=== PATIENT | female | born 2000 | race American Indian/Alaskan Native ===

== ENCOUNTER 2020-12-27 16:26 | Emergency (ER) | payer BC ==
[2020-12-27 16:34] VITALS: BP 120/94
[2020-12-27] MEDS ORDERED: predniSONE 20 MG TAB PO ONE (16:53)
[2020-12-27] MEDS ORDERED: diphenhydrAMINE 25 MG CAP PO ONE (16:54)
--- NOTE | 2020-12-27 17:00 | Emergency Department Report ---
ED General Adult HPI - General Chief complaint: Allergic Reaction Stated complaint: REACTION Time Seen by Provider: 12/27/20 16:52 Source: patient Mode of arrival: Ambulatory Limitations: No Limitations - History of Present Illness Initial comments: Patient complains of diffuse itchy rash to arms and torso and abdomen after coming in contact with possible poisonous oak. She denies any facial swelling, dysphagia, cough, or difficulty breathing. History of anxiety. Patient states rash is rapidly spreading -: Sudden - Related Data Previous Rx's Medication Instructions Recorded Last Taken Type Loratadine 10 mg PO QDAY PRN #10 tablet 12/27/20 Unknown Rx Prednisone [predniSONE 10 mg 10 mg PO .TAPER #1 tab.ds.pk 12/27/20 Unknown Rx (6-Day Pack, 21 Tabs)] Triamcinolone Acetonide 30 gm TP TID PRN 7 Days #1 12/27/20 Unknown Rx oint...g. Allergies Allergy/AdvReac Type Severity Reaction Status Date / Time Wiley And Derivatives Allergy Unknown Verified 12/27/20 16:31 ED Review of Systems ROS: Stated complaint: REACTION Other details as noted in HPI Constitutional: denies: chills, diaphoresis, fever, malaise, weakness Respiratory: denies: cough, shortness of breath Cardiovascular: denies: chest pain Musculoskeletal: denies: arthralgia Skin: rash. denies: lesions ED Past Medical Hx - Past Medical History Previous Medical History?: No - Surgical History Past Surgical History?: No - Social History Smoking Status: Current Every Day Smoker - Medications Home Medications: Home Medications Medication Instructions Recorded Confirmed Last Taken Type Loratadine 10 mg PO QDAY PRN #10 tablet 12/27/20 Unknown Rx Prednisone [predniSONE 10 mg 10 mg PO .TAPER #1 tab.ds.pk 12/27/20 Unknown Rx (6-Day Pack, 21 Tabs)] Triamcinolone Acetonide 30 gm TP TID PRN 7 Days #1 12/27/20 Unknown Rx oint...g. ED Physical Exam - General Limitations: No Limitations General appearance: alert, in no apparent distress - Head Head exam: Present: atraumatic, normocephalic - Eye Eye exam: Present: normal appearance. Absent: scleral icterus - Neck Neck exam: Present: normal inspection - Respiratory Respiratory exam: Present: normal lung sounds bilaterally. Absent: respiratory distress - Cardiovascular Cardiovascular Exam: Present: regular rate, normal rhythm. Absent: systolic murmur, diastolic murmur, rubs, gallop - Neurological Exam Neurological exam: Present: alert, oriented X3 - Psychiatric Psychiatric exam: Present: normal affect, normal mood - Skin Skin exam: Present: warm, dry, intact, rash (Urticarial-like rash noted to torso and top of arms with excoriation perez; no cellulitic changes or drainage noted) ED Course Vital Signs 12/27/20 12/27/20 16:33 17:48 Temperature 98.3 F Pulse Rate 125 H 89 Respiratory 20 98 H Rate Blood Pressure 120/94 O2 Sat by Pulse 67 L Oximetry ED Medical Decision Making - Medical Decision Making Patient complains of diffuse itchy rash to arms and torso and abdomen after coming in contact with possible poisonous oak. She denies any facial swelling, dysphagia, cough, or difficulty breathing. History of anxiety. We will treat for contact dermatitis with prednisone and Claritin and triamcinolone. Recommend follow-up with PCP in 3 days. Vitals are normal upon recheck. Strict return precautions discussed in detail with patient verbalized understanding. Critical care attestation.: If time is entered above; I have spent that time in minutes in the direct care of this critically ill patient, excluding procedure time. ED Disposition Clinical Impression: Contact dermatitis due to plant Disposition: DC-01 TO HOME OR SELFCARE Is pt being admited?: No Condition: Stable Instructions: Poison [place] Dermatitis Prescriptions: Loratadine 10 mg PO QDAY PRN #10 tablet PRN Reason: Itching Prednisone [predniSONE 10 mg (6-Day Pack, 21 Tabs)] 10 mg PO .TAPER #1 tab.ds.pk Triamcinolone Acetonide 30 gm TP TID PRN 7 Days #1 oint...g. PRN Reason: Itching Referrals: [facility] [Provider Group] - 3-5 Days
[2020-12-27] MEDS ORDERED: hydrOXYzine HCL 25 MG TAB PO ONE (17:30)
== END 2020-12-27 17:08 | disposition home or self-care (01) ==
LOC: ED 16:26
DX: L25.5 Unspecified contact dermatitis due to plants, except food (principal); F17.200 Nicotine dependence, unspecified, uncomplicated; Z79.899 Other long term (current) drug therapy; Z88.8 Allergy status to other drugs, medicaments and biological substances
CPT/HCPCS: 99282; J7512